=== PATIENT | female | born 1955 | race Caucasian/White ===

== ENCOUNTER 2020-12-26 19:34 | Inpatient (IN) | payer BC ==
[2020-12-26] MEDS ORDERED: HEPARIN SODIUM 1,000 UN/ML (10ML VL) IV PRN (20:20)
--- NOTE | 2020-12-26 20:25 | ED ---
SOB HPI - General Chief Complaint: Shortness of Breath Stated Complaint: SOB, Covid+ Time Seen by Provider: 12/26/20 19:34 Source: patient, EMS, RN notes reviewed, old records reviewed Mode of arrival: EMS Limitations: no limitations - History of Present Illness Initial Comments: This is a 65-year-old female who was exposed to a granddaughter did had COVID-19 this past weekend with symptoms of fever chills cough she was diagnosed with COVID-19 5 days ago. She was seen at [facility] and worked up and found to have a left lower lobe infiltrate on x-ray but due to elevated d-dimer CAT scan was performed did show evidence of bilateral pulmonary emboli with no heart strain. Due to the patient's symptoms she was transferred here for higher level of care. She denies any chest pain currently denies any palpitations patient is a nonsmoker. She was treated with steroids and the other facility. He was also heparinized. MD Complaint: shortness of breath - Related Data Allergies Allergy/AdvReac Type Severity Reaction Status Date / Time No Known Allergies Allergy Verified 12/26/20 19:52 Review of Systems ROS Statement: Those systems with pertinent positive or pertinent negative responses have been documented in the HPI. ROS Other: All systems not noted in ROS Statement are negative. Past Medical History Additional Past Medical History / Comment(s): COVID History of Any Multi-Drug Resistant Organisms: None Reported Past Surgical History: No Surgical Hx Reported Past Psychological History: No Psychological Hx Reported Smoking Status: Never smoker Past Alcohol Use History: None Reported Past Drug Use History: None Reported General Exam - General Exam Comments Initial Comments: This a well-developed well-nourished awake alert oriented 3 female Limitations: no limitations General appearance: alert, in no apparent distress Head exam: Present: atraumatic, normocephalic, normal inspection Eye exam: Present: normal appearance, PERRL, EOMI. Absent: scleral icterus, conjunctival injection, periorbital swelling ENT exam: Present: normal exam, mucous membranes moist Neck exam: Present: normal inspection. Absent: tenderness, meningismus, lymphadenopathy Respiratory exam: Present: decreased breath sounds. Absent: respiratory distress, wheezes, rales, rhonchi, stridor Cardiovascular Exam: Present: regular rate, normal rhythm, normal heart sounds. Absent: systolic murmur, diastolic murmur, rubs, gallop, clicks GI/Abdominal exam: Present: soft, normal bowel sounds. Absent: distended, tenderness, guarding, rebound, rigid Extremities exam: Present: normal inspection, full ROM, normal capillary refill. Absent: tenderness, pedal edema, joint swelling, calf tenderness Back exam: Present: normal inspection Neurological exam: Present: alert, oriented X3, CN II-XII intact Psychiatric exam: Present: normal affect, normal mood Skin exam: Present: warm, dry, intact, normal color. Absent: rash Course Vital Signs 12/26/20 12/26/20 19:49 20:07 Temperature 98.3 F Pulse Rate 79 Respiratory 18 27 H Rate Blood Pressure 125/76 O2 Sat by Pulse 97 Oximetry Medical Decision Making - Medical Decision Making I did review the materials presented from [facility]. Patient will be admitted I did discuss the case with the patient as well as with Dr. Eldridge who did come see the patient in the emergency department - EKG Data -: EKG Interpreted by Me EKG shows normal: sinus rhythm EKG Comments: Sinus rhythm a 74. Interval 178 QRS duration 90 daily since QTC 380/421 this is a normal-appearing EKG Disposition Clinical Impression: Pulmonary embolism, Pneumonia due to COVID-19 virus, Bronchospasm, acute Disposition: ADMITTED IP TO THIS HOSP Condition: Fair Referrals: None,Stated [Primary Care Provider] - 1-2 days
[2020-12-26] MEDS: HEPARIN SOD,PORK IN 0.45% NACL 25,000 UNIT in 0.45% NACL 1 250ML.BAG IV SCH (20:45)
[2020-12-26] MEDS ORDERED: NALOXONE 0.4 MG/ML 1 ML VIAL IV PRN (20:52)
[2020-12-26 22:04] LABS: Partial Thromboplastin Time 92.5 sec (22.0-30.0); Prothrombin Time 10.7 sec (9.0-12.0)
[2020-12-26] MEDS: SODIUM CHLORIDE 0.9% 1,000 ML IV SCH (23:47)
[2020-12-27] MEDS ORDERED: ALBUTEROL HFA INHALER INHALATION SCH
[2020-12-27] MEDS ORDERED: ACETAMINOPHEN TAB 325 MG TAB PO PRN (00:17)
--- NOTE | 2020-12-27 00:18 | P.HPIM ---
History of Present Illness H&P Date: 12/26/20 The patient is a 65-year-old female with no known PMH who was sent in as a transfer from [facility] where she presented earlier today with complaints of shortness of breath. Patient reports that her granddaughter was diagnosed with COVID roughly 10 days ago to whom the patient was exposed. She notes that her own symptoms started a week ago Monday initially with a cough, body aches, and fever. She had herself tested for COVID this past Monday and was positive. She reports continuing to quarantine at home and reports that multiple other family members are also ill. She reports gradually worsening shortness of breath during this time with significantly diminished exercise tolerance. She also reports loss of smell and taste and occasional diarrhea. She denied chest discomfort. Also denied abdominal pain, nausea, vomiting. Denied visual disturbances, weakness, numbness, tingling. Denied any history of blood clots. She underwent an extensive evaluation at [facility] which was all reviewed. The patient was noted to be hypoxic with SpO2 86% on room air. She was found to have an elevated d-dimer after which a CT chest angiogram was performed and revealed bilateral proximal pulmonary emboli along with findings consistent with COVID pneumonia. No RV strain was noted on the CTA. Laboratory evaluation revealed positive COVID-19 PCR, WBC count 5.1, hemoglobin 15.6, platelets 136, PT 9.5, INR 0.9, d-dimer 1.02, sodium 135, potassium 4.0, chloride 100, CO2 28, BUN 18, creatinine 0.6, glucose 122, AST 44, ALT 29, alk phos 75, and troponin less than 0.05. EKG had revealed sinus rhythm at 92 bpm with T-wave inversions in leads III and aVF. The patient was given a breathing treatment as well as oral dexamethasone and was sent to our emergency room for further management. The patient continues to be on 4 L nasal cannula with SpO2 96% and not in any respiratory distress at time of evaluation. Review of systems: Pertinent positives and negatives as discussed in HPI, a complete review of systems was performed and all other systems are negative. Physical examination: General: non toxic, no distress, appears at stated age, normal weight Derm: no unusual rashes/lesions no unusual ecchymoses, warm, dry Head: atraumatic, normocephalic, symmetric Eyes: EOMI, no lid lag, anicteric sclera, pupils equal round reactive to light ENT: Nose and ears atraumatic, no thrush, no pharyngeal erythema Neck: No thyromegaly, no cervical lymphadenopathy, trachea midline, supple Mouth: no lip lesion, mucus membranes moist Cardiovascular: S1S2 reg, no murmur, positive posterior tibial pulse bilateral, no edema, capillary refill less than 2 seconds Lungs: Some scattered bilateral rhonchi, no rales , no accessory muscle use, no wheezing Abdominal: soft, nontender to palpation, no guarding, no appreciable organomegaly, normal bowel sounds Ext: no gross muscle atrophy, muscle strength 5 out of 5 in all 4 extremities grossly, no contractures, Neuro: CN II-XI grossly intact, light touch intact all 4 extremities, finger to nose within normal limits, Psych: Alert, oriented, appropriate affect Assessment/plan Acute provoked bilateral PE in setting of COVID-19 pneumonitis -Continue with heparin infusion -Continue with Decadron -Zinc, vitamin C, vitamin D, melatonin -Supplemental oxygen -Pulmonary consulted -Monitor inflammatory markers Acute hypoxic respiratory failure in setting of COVID-19 pneumonitis -Above management Prerenal azotemia -Likely due to poor oral intake and dehydration with diarrhea -Continue gentle hydration DVT prophylaxis -Heparin infusion The patient is admitted with an anticipated greater than 2 midnight stay for evaluation of COVID, robi PEs CODE STATUS: Full Code Discussed with: Patient Anticipated discharge date: 2-[address]: Home Past Medical History Additional Past Medical History / Comment(s): COVID History of Any Multi-Drug Resistant Organisms: None Reported Past Surgical History: No Surgical Hx Reported Past Psychological History: No Psychological Hx Reported Smoking Status: Never smoker Past Alcohol Use History: None Reported Past Drug Use History: None Reported - Past Family History Mother Family Medical History: No Reported History, Hypertension Medications and Allergies Home Medications Medication Instructions Recorded Confirmed Type Aspirin (Unknown Dose) 1 tab PO DAILY 12/26/20 12/26/20 History Cholecalciferol [Vitamin D3 (25 50 mcg PO DAILY 12/26/20 12/26/20 History Mcg = 1000 Iu)] Allergies Allergy/AdvReac Type Severity Reaction Status Date / Time No Known Allergies Allergy Verified 12/26/20 21:25 Physical Exam Vitals: Vital Signs Temp Pulse Resp BP Pulse Ox 12/26/20 20:50 68 18 112/75 98 12/26/20 20:07 27 H 12/26/20 19:49 98.3 F 79 18 125/76 97 Intake and Output 12/26/20 12/26/20 12/26/20 06:59 14:59 22:59 Other: Weight 75.296 kg
[2020-12-27] MEDS: ALBUTEROL HFA INHALER INHALATION SCH ×3 (07:36→20:30)
[2020-12-27 08:13] LABS: HCT 46.4 % (34.0-46.0); MCH 30.4 pg (25.0-35.0); MCHC 32.2 g/dL (31.0-37.0); MCV 94.2 fL (80.0-100.0); Mean Platelet Volume 7.8; Platelet Count 130 k/uL (150-450); RBC 4.93 m/uL (3.80-5.40); WBC 5.1 k/uL (3.8-10.6)
[2020-12-27 08:50] LABS: ALT 37 U/L (4-34); AST 51 U/L (14-36); African American GFR (CKD) >90 (>60 ml/min/1.73 sqM); Alkaline Phosphatase 70 U/L (38-126); Blood Urea Nitrogen 16 mg/dL (7-17); Calcium 10.1 mg/dL (8.4-10.2); Carbon Dioxide 24 mmol/L (22-30); Glucose 117 mg/dL (74-99); Non-African American GFR(CKD) >90 (>60 ml/min/1.73 sqM); Potassium 3.7 mmol/L (3.5-5.1); Sodium 138 mmol/L (137-145); Total Bilirubin 0.3 mg/dL (0.2-1.3); Total Protein 5.5 g/dL (6.3-8.2)
[2020-12-27] MEDS: ASCORBIC ACID 500 MG TAB PO SCH (08:54)
[2020-12-27] MEDS: SODIUM CHLORIDE 0.9% 1,000 ML IV SCH ×2 (08:55→23:40)
[2020-12-27] MEDS: dexAMETHasone 2 MG TAB PO SCH (08:55)
[2020-12-27] MEDS: ZINC SULFATE 220 MG CAP PO SCH (08:55)
[2020-12-27] MEDS: CHOLECALCIFEROL 25 MCG (1000 IU) TABLET PO SCH (08:55)
[2020-12-27 09:01] LABS: Anion Gap 6 mmol/L; Chloride 108 mmol/L (98-107)
--- NOTE | 2020-12-27 10:05 | P.CNPUL ---
History of Present Illness Consult date: 12/27/20 Reason for consult: dyspnea, pneumonia, pulmonary embolism History of present illness: 65-year-old female patient, transferred from [facility] because of shortness of breath, cough with a related pneumonia and pulmonary embolism. The patient was exposed to COVID-19 in approximately a week ago she started developing cough and body aches and fever. Coagulation became progressively worse and she presented with increased shortness of breath and she was found to be hypoxic at 86% on room air oxygen. She had an elevated d-dimer. CT angiogram showed bilateral pulmonary embolism consistent with COVID-19 related pneumonia. No RV strain pattern based on the CT angiogram. The patient was positive for COVID-19 by PCR. Her d-dimer was at 1.02. Platelet count was 136. Normal renal function. The patient was started on IV heparin. The patient was started on Decadron and the patient was transferred to [facility] for further care. CT angiogram showed bilateral groundglass densities consistent with COVID-19 related pneumonia. The patient had parenchymal densities in the posterior aspect of the lower lobes consistent with pneumonia. There are also scattered bilateral groundglass pulmonary abnormalities. Mediastinum was free of any disease. Pulmonary artery showed filling defects in the liver small but multiple small filling defects in the proximal pulmonary artery bilaterally, highly suspicious for pulmonary embolism. Currently she is on IV heparin. She is on 4 L of oxygen by nasal cannula and her pulse ox is around 96%. This morning, the patient has a white cell count of 5.1. Platelet count is at 1:30. PTT is a 59 which is therapeutic. LDH and CRP has not been done. She is on Decadron 6 mg by mouth daily. Multivitamins regarding COVID-19 infection has been also ordered. Review of Systems Constitutional: Reports fatigue, Reports fever, Reports weakness Eyes: denies as per HPI, denies blurred vision, denies bulging eye, denies decreased vision, denies diplopia, denies discharge, denies dry eye, denies irritation, denies itching, denies pain, denies photophobia, denies loss of peripheral vision, denies loss of vision, denies tunnel vision/blind spots Ears: deny: decreased hearing, ear discharge, earache, tinnitus Ears, nose, mouth and throat: Reports as per HPI Breasts: absent: as per HPI, change in shape, gynecomastia, masses, nipple discharge, pain, skin changes, swelling Cardiovascular: Reports decreased exercise tolerance, Reports dyspnea on exertion Respiratory: Reports cough, Reports dyspnea Genitourinary: Reports as per HPI Menstruation: Reports as per HPI Musculoskeletal: Reports as per HPI Musculoskeletal: absent: ankle pain, ankle stiffness, ankle swelling, as per HPI, elbow pain, elbow stiffness, elbow swelling, foot pain, foot stiffness, foot swelling, hand pain, hand stiffness, hand swelling, hip pain, hip stiffness, hip swelling, knee pain, knee stiffness, knee swelling, shoulder pain, shoulder stiffness, shoulder swelling, wrist pain, wrist stiffness, wrist swelling Integumentary: Reports as per HPI Neurological: Reports as per HPI Psychiatric: Reports as per HPI Endocrine: Reports as per HPI Hematologic/Lymphatic: Reports as per HPI Allergic/Immunologic: Reports as per HPI Past Medical History Additional Past Medical History / Comment(s): COVID History of Any Multi-Drug Resistant Organisms: None Reported Past Surgical History: No Surgical Hx Reported Additional Past Anesthesia/Blood Transfusion Reaction / Comment(s): Never had a blood transfusion. Past Psychological History: No Psychological Hx Reported Smoking Status: Never smoker Past Alcohol Use History: None Reported Past Drug Use History: None Reported - Past Family History Mother Family Medical History: No Reported History, Hypertension Medications and Allergies Home Medications Medication Instructions Recorded Confirmed Type Aspirin (Unknown Dose) 1 tab PO DAILY 12/26/20 12/26/20 History Cholecalciferol [Vitamin D3 (25 50 mcg PO DAILY 12/26/20 12/26/20 History Mcg = 1000 Iu)] Allergies Allergy/AdvReac Type Severity Reaction Status Date / Time No Known Allergies Allergy Verified 12/26/20 21:25 Physical Exam Vitals: Vital Signs Temp Pulse Pulse Resp BP BP Pulse Ox 12/27/20 03:01 98.0 F 75 22 105/68 90 L 12/27/20 00:00 74 20 107/66 90 L 12/26/20 22:22 98.5 F 72 22 120/77 96 12/26/20 21:43 66 18 112/73 97 12/26/20 20:50 68 18 112/75 98 12/26/20 20:07 27 H 12/26/20 19:49 98.3 F 79 18 125/76 97 Intake and Output 0812/27/20 12/27/20 22:59 06:59 14:59 Intake Total 29.139 29.9 Output Total 300 Balance 29.139 -270.1 Intake: Intake, IV Titration 29.139 29.9 Amount Heparin Sod,Pork in 0.45% 29.139 29.9 NaCl 25,000 unit In 0.45 % NaCl 1 250ml.bag @ 18 UNITS/KG/HR 13.553 mls/hr IV .[id number] [facility] Rx#: [id number] Output: Urine 300 Other: # Voids 0 1 # Bowel Movements 1 Weight 75.296 kg 69 kg General: non toxic, no distress, appears at stated age, normal weight, breathing is nonlabored as long as the patient is at rest. With activity, the patient gets somewhat short of breath. Derm: no unusual rashes/lesions no unusual ecchymoses, warm, dry Head exam was generally normal. There was no scleral icterus or corneal arcus. Mucous membranes were moist. Eyes: EOMI, no lid lag, anicteric sclera, pupils equal round reactive to light ENT: Nose and ears atraumatic, no thrush, no pharyngeal erythema Neck: No thyromegaly, no cervical lymphadenopathy, trachea midline, supple Mouth: no lip lesion, mucus membranes moist Cardiovascular: S1S2 reg, no murmur, positive posterior tibial pulse bilateral, no edema, capillary refill less than 2 seconds Lungs: Some scattered bilateral rhonchi, no rales , no accessory muscle use, no wheezing Abdominal: soft, nontender to palpation, no guarding, no appreciable org anomegaly, normal bowel sounds Ext: no gross muscle atrophy, muscle strength 5 out of 5 in all 4 extremities grossly, no contractures, Neuro: CN II-XI grossly intact, light touch intact all 4 extremities, finger to nose within normal limits, Psych: Alert, oriented, appropriate affect Results - Laboratory Findings CBC and BMP: 12/27/20 07:47 12/27/20 07:47 PT/INR, D-dimer PT 10.7 sec (9.0-12.0) 12/26/20 21:29 INR 1.0 (<1.2) 12/26/20 21:29 Abnormal lab findings: Abnormal Labs 12/26/20 12/27/20 12/27/20 21:29 01:38 07:47 Hct 46.4 H Plt Count 130 L APTT 92.5 H 95.6 H Chloride Glucose AST ALT Total Protein Albumin 12/27/20 12/27/20 07:47 07:47 Hct Plt Count APTT 59.6 H Chloride 108 H Glucose 117 H AST 51 H ALT 37 H Total Protein 5.5 L Albumin 3.0 L - Diagnostic Findings Chest x-ray: image reviewed CT scan - chest: image reviewed Assessment and Plan Plan: 1 acute COVID-19 related pneumonia with bilateral groundglass primary changes co nsistent with pneumonia. The patient is within the window for Remdesivir, currently on 4 L about 2 by nasal cannula. Currently on Decadron. LDH and CRP needs to be checked. The patient has not vaccinated. The patient has not received monoclonal antibodies. 2 acute bilateral pulmonary embolism based on the CT angiogram contributing to her shortness of breath. This could be related to her COVID-19 infection hypercoagulability related to COVID-19 and the patient is currently on IV heparin. D-dimer is mildly elevated 3 acute hypoxic respiratory failure currently on 4 L of oxygen by nasal cannula, secondary to above 4 mild thrombocytopenia Plan Proceed with a 2-D echocardiogram to assess pulmonary hypertension and RV dysfunction Obtain Doppler of the lower extremity, rule out DVT Continue IV heparin Continue Decadron 6mg po daily Start the patient on Remdesivir perprotocol Check LDH and CRP Agree on vitamin C and vitamin D and melatonin Continue monitoring the oxygenation Monitor platelet count We'll continue to follow.
[2020-12-27] MEDS ORDERED: REMDESIVIR 200 MG in SODIUM CHLORIDE 0.9% 250 ML IVPB ONE (10:06)
[2020-12-27 10:56] LABS: C Reactive Protein 3.5 mg/dL (<1.0)
--- NOTE | 2020-12-27 11:48 | US ---
EXAMINATION TYPE: US venous doppler duplex LE DATE OF EXAM: 12/27/2020 11:15 AM COMPARISON: NONE CLINICAL HISTORY: PE, COVID. Exam done portable. SIDE PERFORMED: Bilateral TECHNIQUE: The lower extremity deep venous system is examined utilizing real time linear array sonog jonathan with graded compression, doppler sonography and color-flow sonography. VESSELS IMAGED: Common Femoral Vein Deep Femoral Vein Greater Saphenous Vein * Femoral Vein Popliteal Vein Small Saphenous Vein * Proximal Calf Veins (* superficial vessels) There is normal flow, compressibility, vascular waveforms. Right Leg: Appears negative for DVT Left Leg: Appears negative for DVT IMPRESSION: No evident deep venous arthrosis at the level of the knees or central to the knees within the lower extremities
--- NOTE | 2020-12-27 12:32 | P.PN ---
Subjective Progress Note Date: 12/27/20 No new copmlaints today. Pt is on dexamethasone, heparin, Vit C/D, zn, famotidine. Supportive therapy. Objective - Vital Signs Vital signs: Vital Signs Temp 98.2 F 12/27/20 12:00 Pulse 71 12/27/20 12:00 Resp 20 12/27/20 12:00 BP 117/70 12/27/20 12:00 Pulse Ox 92 L 12/27/20 12:00 Intake & Output 12/26/20 12/27/20 12/27/20 18:59 06:59 18:59 Intake Total 59.039 Output Total 300 Balance -240.961 Weight 69 kg Intake: Intake, IV Titration 59.039 Amount Heparin Sod,Pork in 0.45% 59.039 NaCl 25,000 unit In 0.45 % NaCl 1 250ml.bag @ 18 UNITS/KG/HR 13.553 mls/hr IV .[id number] [facility] Rx#: [id number] Output: Urine 300 Other: # Voids 1 # Bowel Movements 1 - Exam Gen: awake, alert HEENT: normocephalic, atraumatic, good hearing acuity, moist mucous membranes Resp: good air exchange, breathing comfortably with no accessory muscle use CVS: good distal perfusion x 4, GI: soft, NTTP, ND : no SPT, no CVAT, swann catheter not present MSK: no pitting edema, no clubbing Neuro: non-focal, moving all extremities Psych: cooperative, euthymic mood - Labs CBC & Chem 7: 12/27/20 07:47 12/27/20 07:47 Labs: Abnormal Lab Results - Last 24 Hours (Table) 12/26/20 12/27/20 12/27/20 Range/Units 21:29 01:38 07:47 Hct 46.4 H (34.0-46.0) % Plt Count 130 L (150-450) k/uL APTT 92.5 H 95.6 H (22.0-30.0) sec Chloride (98-107) mmol/L Glucose (74-99) mg/dL AST (14-36) U/L ALT (4-34) U/L Lactate Dehydrogenase (313-618) U/L C-Reactive Protein (<1.0) mg/dL Total Protein (6.3-8.2) g/dL Albumin (3.5-5.0) g/dL 12/27/20 12/27/20 12/27/20 Range/Units 07:47 07:47 07:47 Hct (34.0-46.0) % Plt Count (150-450) k/uL APTT 59.6 H (22.0-30.0) sec Chloride 108 H (98-107) mmol/L Glucose 117 H (74-99) mg/dL AST 51 H (14-36) U/L ALT 37 H (4-34) U/L Lactate Dehydrogenase 684 H (313-618) U/L C-Reactive Protein 3.5 H (<1.0) mg/dL Total Protein 5.5 L (6.3-8.2) g/dL Albumin 3.0 L (3.5-5.0) g/dL Assessment and Plan Assessment: Acute provoked bilateral PE in setting of COVID-19 pneumonitis -Continue with heparin infusion -Continue with Decadron -Zinc, vitamin C, vitamin D, melatonin -Supplemental oxygen -Pulmonary consulted -Monitor inflammatory markers Acute hypoxic respiratory failure in setting of COVID-19 pneumonitis -Above management Prerenal azotemia -Likely due to poor oral intake and dehydration with diarrhea -Continue gentle hydration DVT prophylaxis -Heparin infusion The patient is admitted with an anticipated greater than 2 midnight stay for evaluation of COVID, robi PEs CODE STATUS: Full Code Discussed with: Patient Anticipated discharge date: 2-[address]: Home
[2020-12-27] MEDS: HEPARIN SOD,PORK IN 0.45% NACL 25,000 UNIT in 0.45% NACL 1 250ML.BAG IV SCH (14:13)
[2020-12-27] MEDS: MELATONIN 5 MG TABLET PO SCH (21:09)
[2020-12-28] MEDS: ALBUTEROL HFA INHALER INHALATION SCH ×3 (08:03→19:05)
[2020-12-28] MEDS: dexAMETHasone 2 MG TAB PO SCH (08:17)
[2020-12-28] MEDS: ZINC SULFATE 220 MG CAP PO SCH (08:17)
[2020-12-28] MEDS: SODIUM CHLORIDE 0.9% 1,000 ML IV SCH (08:17)
[2020-12-28] MEDS: CHOLECALCIFEROL 25 MCG (1000 IU) TABLET PO SCH (08:17)
[2020-12-28] MEDS: ASCORBIC ACID 500 MG TAB PO SCH (08:17)
[2020-12-28] MEDS ORDERED: REMDESIVIR 100 MG in SODIUM CHLORIDE 0.9% 250 ML IVPB SCH (09:00)
--- NOTE | 2020-12-28 11:17 | P.PN ---
Subjective Progress Note Date: 12/28/20 Stable oxygenation status. Ongoing supportive care, heparin gtt. Pulmonology following. Objective - Vital Signs Vital signs: Vital Signs Temp 98 F 12/28/20 04:30 Pulse 71 12/28/20 04:30 Resp 21 12/28/20 04:30 BP 111/71 12/28/20 04:30 Pulse Ox 92 L 12/28/20 08:03 Intake & Output 12/27/20 12/28/20 12/28/20 18:59 06:59 18:59 Intake Total 729.418 126.639 240 Balance 729.418 126.639 240 Weight 70.5 kg Intake: Intake, IV Titration 77.418 126.639 Amount Heparin Sod,Pork in 0.45% 77.418 126.639 NaCl 25,000 unit In 0.45 % NaCl 1 250ml.bag @ 18 UNITS/KG/HR 13.553 mls/hr IV .[id number] [facility] Rx#: [id number] Oral 652 240 Other: Voiding Method Bedside Commode # Voids 3 1 1 # Bowel Movements 1 - Exam Gen: awake, alert HEENT: normocephalic, atraumatic, good hearing acuity, moist mucous membranes Resp: good air exchange, breathing comfortably with no accessory muscle use CVS: good distal perfusion x 4, GI: soft, NTTP, ND : no SPT, no CVAT, swann catheter not present MSK: no pitting edema, no clubbing Neuro: non-focal, moving all extremities Psych: cooperative, euthymic mood - Labs CBC & Chem 7: 12/27/20 07:47 12/27/20 07:47 Labs: Abnormal Lab Results - Last 24 Hours (Table) 12/27/20 12/28/20 Range/Units 07:47 06:16 APTT 43.2 H (22.0-30.0) sec Ferritin 704.0 H (10.0-291.0) ng/mL Assessment and Plan Assessment: Acute provoked bilateral PE in setting of COVID-19 pneumonitis -Continue with heparin infusion -Continue with Decadron -Zinc, vitamin C, vitamin D, melatonin -Supplemental oxygen -Pulmonary consulted -Monitor inflammatory markers Acute hypoxic respiratory failure in setting of COVID-19 pneumonitis -Above management Prerenal azotemia -Likely due to poor oral intake and dehydration with diarrhea -Continue gentle hydration DVT prophylaxis -Heparin infusion The patient is admitted with an anticipated greater than 2 midnight stay for evaluation of COVID, robi PEs CODE STATUS: Full Code Discussed with: Patient Anticipated discharge date: 2-[address]: Home
--- NOTE | 2020-12-28 13:11 | P.PN ---
Subjective Progress Note Date: 12/28/20 Principal diagnosis: Acute COVID-19 pneumonia, acute bilateral pulmonary embolism 65-year-old female patient, transferred from [facility] because of shortness of breath, cough with a related pneumonia and pulmonary embolism. The patient was exposed to COVID-19 in approximately a week ago she started developing cough and body aches and fever. Coagulation became progressively worse and she presented with increased shortness of breath and she was found to be hypoxic at 86% on room air oxygen. She had an elevated d-dimer. CT angiogram showed bilateral pulmonary embolism consistent with COVID-19 related pneumonia. No RV strain pattern based on the CT angiogram. The patient was positive for COVID-19 by PCR. Her d-dimer was at 1.02. Platelet count was 136. Normal renal function. The patient was started on IV heparin. The patient was started on Decadron and the patient was transferred to [facility] for further care. CT angiogram showed bilateral groundglass densities consistent with COVID-19 related pneumonia. The patient had parenchymal densities in the posterior aspect of the lower lobes consistent with pneumonia. There are also scattered bilateral groundglass pulmonary abnormalities. Mediastinum was free of any disease. Pulmonary artery showed filling defects in the liver small but multiple small filling defects in the proximal pulmonary artery bilaterally, highly suspicious for pulmonary embolism. Currently she is on IV heparin. She is on 4 L of oxygen by nasal cannula and her pulse ox is around 96%. This morning, the patient has a white cell count of 5.1. Platelet count is at 1:30. PTT is a 59 which is therapeutic. LDH and CRP has not been done. She is on Decadron 6 mg by mouth daily. Multivitamins regarding COVID-19 infection has been also ordered. On 12/28/2020 patient seen in follow-up on selective care unit, she is resting comfortably in bed, she is currently on 2 L of oxygen her pulse ox is 92%, she is breathing comfortably, does not appear to be in any acute distress, she is awake and alert, oriented 3, she is afebrile. No complaints of chest discomfort, no hemoptysis. She is on day 2 of Remdesivir, she is on oral dexamethasone 6 mg daily. She remains on heparin infusion for a diagnosis of acute pulmonary embolism. Lower extremity Dopplers were completed and are negative for DVT. Echocardiogram is pending. Objective - Vital Signs Vital signs: Vital Signs Temp 98.0 F 12/28/20 08:00 Pulse 71 12/28/20 08:00 Resp 20 12/28/20 08:00 BP 111/67 12/28/20 08:00 Pulse Ox 92 L 12/28/20 08:03 Intake & Output 12/27/20 12/28/20 12/28/20 18:59 06:59 18:59 Intake Total 729.418 126.639 240 Balance 729.418 126.639 240 Weight 70.5 kg Intake: Intake, IV Titration 77.418 126.639 Amount Heparin Sod,Pork in 0.45% 77.418 126.639 NaCl 25,000 unit In 0.45 % NaCl 1 250ml.bag @ 18 UNITS/KG/HR 13.553 mls/hr IV .[id number] [facility] Rx#: [id number] Oral 652 240 Other: Voiding Method Bedside Commode Bedside Commode # Voids 3 1 1 # Bowel Movements 1 - Exam GENERAL EXAM: Alert, pleasant, 65-year-old white female, On 2 liters of oxygen the pulse ox 92% comfortable in no apparent distress. HEAD: Normocephalic/atraumatic. EYES: Normal reaction of pupils, equal size. Conjunctiva pink, sclera white. NOSE: Clear with pink turbinates. THROAT: No erythema or exudates. NECK: No masses, no JVD, no thyroid enlargement, no adenopathy. CHEST: No chest wall deformity. Symmetrical expansion. LUNGS: Equal air entry with no crackles, wheeze, rhonchi or dullness. CVS: Regular rate and rhythm, normal S1 and S2, no gallops, no murmurs, no rubs ABDOMEN: Soft, nontender. No hepatosplenomegaly, normal bowel sounds, no guarding or rigidity. EXTREMITIES: No clubbing, no edema, no cyanosis, 2+ pulses and upper and lower extremities. MUSCULOSKELETAL: Muscle strength and tone normal. SPINE: No scoliosis or deformity SKIN: No rashes CENTRAL NERVOUS SYSTEM: Alert and oriented -3. No focal deficits, tone is normal in all 4 extremities. PSYCHIATRIC: Alert and oriented -3. Appropriate affect. Intact judgment and insight. - Labs CBC & Chem 7: 12/27/20 07:47 12/27/20 07:47 Labs: Abnormal Lab Results - Last 24 Hours (Table) 12/27/20 12/28/20 Range/Units 07:47 06:16 APTT 43.2 H (22.0-30.0) sec Ferritin 704.0 H (10.0-291.0) ng/mL Assessment and Plan Plan: Assessment: #1. Acute COVID-19 related pneumonia, with bilateral groundglass changes consistent with COVID-19 pneumonia. Patient is within the window for Remdesivir, and was started on Remdesivir on 12/27/2020. She is also on Decadron. Patient was not vaccinated for COVID 19. Has not received monoclonal antibodies #2. Acute bilateral pulmonary embolism based on the CT angiogram contributing to the shortness of breath. This could be related to COVID-19 infectious hypercoagulability. Lower extremity Dopplers were negative for DVT, remains on heparin infusion #3. Acute hypoxic respiratory failure related to the above, currently on 2 L of oxygen above 92% #4. Mild thrombocytopenia Plan: Continue Decadron Today's day 2 to of Remdesivir Continue vitamins Continue heparin infusion Lower extremity Dopplers were reviewed Today's labs were noted Inflammatory markers are not significantly elevated Patient is currently on 2 L of oxygen No fever or chills We'll continue to follow Monitor for any worsening dyspnea or hypoxia I performed a history & physical examination of the patient and discussed their management with my nurse practitioner, Haleigh Knott. I reviewed the nurse practitioner's note and agree with the documented findings and plan of care. Lung sounds are positive for clear breath sounds throughout the lung fuentes. The findings and the impression was discussed with the patient. I attest to the documentation by the nurse practitioner. Time with Patient: Less than 30
[2020-12-28] MEDS: HEPARIN SOD,PORK IN 0.45% NACL 25,000 UNIT in 0.45% NACL 1 250ML.BAG IV SCH (15:54)
[2020-12-28] MEDS: MELATONIN 5 MG TABLET PO SCH (20:56)
--- NOTE | 2020-12-28 21:39 | ECHOF ---
Referral Reason:Srinivas PE MEASUREMENTS -------- HEIGHT: 170.2 cm WEIGHT: 70.3 kg BP: IVSd: 1.3 cm (0.6 - 1.1) LVIDd: 4.5 cm (3.9 - 5.3) LVPWd: 1.4 cm (0.6 - 1.1) EDV(Teich): 91 ml IVSs: 1.5 cm LVIDs: 2.8 cm LVPWs: 1.2 cm %IVS Thck: 11 % ESV(Teich): 28 ml EF(Teich): 69 % %FS: 38 % SV(Teich): 62 ml RVIDd: 3.7 cm (< 3.3) Ao Diam: 3.4 cm (2.0 - 3.7) LA Diam: 3.1 cm (2.7 - 3.8) AV Cusp: 2.3 cm (1.5 - 2.6) EPSS: 1.0 cm MV E Umang: 0.45 m/s MV DecT: 179 ms MV Dec [place]: 2.5 m/s MV A Umang: 0.51 m/s MV E/A Ratio: 0.88 MV PHT: 52 ms MR Vmax: 0.90 m/s MR maxP.21 mmHg AV Vmax: 0.84 m/s AV maxP.79 mmHg TR Vmax: 2.02 m/s TR maxP.29 mmHg RAP: 5.00 mmHg RVSP: 21.29 mmHg MV EF SLOPE: 147.86 mm/s (70 - 150) MV EXCURSION: 21.17 mm (> 18.000) FINDINGS -------- This was a technically difficult study with suboptimal views. The left ventricular size is normal. There is moderate concentric left ventricular hypertrophy. O verall left ventricular systolic function is low-normal with, an EF between 50 - 55 %. The right ventricle is mildly enlarged. The left atrial size is normal. The right atrial size is normal. Lumason used The aortic valve is trileaflet and appears structurally normal. The mitral valve is normal. There is trace mitral regurgitation. The tricuspid valve appears structurally normal. Trace tricuspid regurgitation present. Right frankie tricular systolic pressure is normal at < 35 mmHg. There is no pulmonic regurgitation present. The aortic root size is normal. IVC Not well visulized. There is no pericardial effusion. CONCLUSIONS -------- 1. The left ventricular size is normal. 2. There is moderate concentric left ventricular hypertrophy. 3. Overall left ventricular systolic function is low-normal with, an EF between 50 - 55 %. 4. The right ventricle is mildly enlarged. 5. There is trace mitral regurgitation. 6. Trace tricuspid regurgitation present. 7. There is no pericardial effusion. DUST HANDLER: Celeste Arguello RDCS
[2020-12-29] MEDS: SODIUM CHLORIDE 0.9% 1,000 ML IV SCH ×2 (02:20→14:34)
[2020-12-29] MEDS: HEPARIN SOD,PORK IN 0.45% NACL 25,000 UNIT in 0.45% NACL 1 250ML.BAG IV SCH (06:34)
[2020-12-29] MEDS: ALBUTEROL HFA INHALER INHALATION SCH ×3 (07:58→19:54)
[2020-12-29 08:44] LABS: ALT 29 U/L (4-34); AST 32 U/L (14-36); African American GFR (CKD) >90 (>60 ml/min/1.73 sqM); Albumin 2.8 g/dL (3.5-5.0); Alkaline Phosphatase 65 U/L (38-126); Anion Gap 6 mmol/L; Blood Urea Nitrogen 13 mg/dL (7-17); Calcium 9.7 mg/dL (8.4-10.2); Carbon Dioxide 25 mmol/L (22-30); Chloride 108 mmol/L (98-107); Glucose 95 mg/dL (74-99); LDH 561 U/L (313-618); Non-African American GFR(CKD) >90 (>60 ml/min/1.73 sqM); Potassium 3.4 mmol/L (3.5-5.1); Sodium 139 mmol/L (137-145); Total Bilirubin 0.3 mg/dL (0.2-1.3); Total Protein 5.3 g/dL (6.3-8.2)
[2020-12-29 08:50] LABS: HCT 41.5 % (34.0-46.0); HGB 14.2 gm/dL (11.4-16.0); MCH 31.3 pg (25.0-35.0); MCHC 34.2 g/dL (31.0-37.0); MCV 91.6 fL (80.0-100.0); Mean Platelet Volume 8.1; Platelet Count 203 k/uL (150-450); RBC 4.54 m/uL (3.80-5.40); RDW 12.9 % (11.5-15.5)
[2020-12-29 09:11] LABS: C Reactive Protein 1.6 mg/dL (<1.0)
[2020-12-29] MEDS: dexAMETHasone 2 MG TAB PO SCH (09:46)
[2020-12-29] MEDS: CHOLECALCIFEROL 25 MCG (1000 IU) TABLET PO SCH (09:47)
[2020-12-29] MEDS: ZINC SULFATE 220 MG CAP PO SCH (09:47)
[2020-12-29] MEDS: ASCORBIC ACID 500 MG TAB PO SCH (09:47)
--- NOTE | 2020-12-29 12:39 | P.PN ---
Subjective Progress Note Date: 12/29/20 Principal diagnosis: Acute COVID-19 pneumonia, acute bilateral pulmonary embolism 65-year-old female patient, transferred from [facility] because of shortness of breath, cough with a related pneumonia and pulmonary embolism. The patient was exposed to COVID-19 in approximately a week ago she started developing cough and body aches and fever. Coagulation became progressively worse and she presented with increased shortness of breath and she was found to be hypoxic at 86% on room air oxygen. She had an elevated d-dimer. CT angiogram showed bilateral pulmonary embolism consistent with COVID-19 related pneumonia. No RV strain pattern based on the CT angiogram. The patient was positive for COVID-19 by PCR. Her d-dimer was at 1.02. Platelet count was 136. Normal renal function. The patient was started on IV heparin. The patient was started on Decadron and the patient was transferred to [facility] for further care. CT angiogram showed bilateral groundglass densities consistent with COVID-19 related pneumonia. The patient had parenchymal densities in the posterior aspect of the lower lobes consistent with pneumonia. There are also scattered bilateral groundglass pulmonary abnormalities. Mediastinum was free of any disease. Pulmonary artery showed filling defects in the liver small but multiple small filling defects in the proximal pulmonary artery bilaterally, highly suspicious for pulmonary embolism. Currently she is on IV heparin. She is on 4 L of oxygen by nasal cannula and her pulse ox is around 96%. This morning, the patient has a white cell count of 5.1. Platelet count is at 1:30. PTT is a 59 which is therapeutic. LDH and CRP has not been done. She is on Decadron 6 mg by mouth daily. Multivitamins regarding COVID-19 infection has been also ordered. On 12/28/2020 patient seen in follow-up on selective care unit, she is resting comfortably in bed, she is currently on 2 L of oxygen her pulse ox is 92%, she is breathing comfortably, does not appear to be in any acute distress, she is awake and alert, oriented 3, she is afebrile. No complaints of chest discomfort, no hemoptysis. She is on day 2 of Remdesivir, she is on oral dexamethasone 6 mg daily. She remains on heparin infusion for a diagnosis of acute pulmonary embolism. Lower extremity Dopplers were completed and are negative for DVT. Echocardiogram is pending. On 12/29/2000 patient seen in follow-up on selective care unit, she 5 L of oxygen pulse ox is 94-96%, no fevers overnight, blood pressure stable,no new chest x-ray, patient has been admitted with COVID-19 pneumonia, and she is on day 3 of Remdesivir. She remains on oral Decadron 6 mg daily. Patient was also diagnosed with acute pulmonary embolism, lower extremity Dopplers were negative for DVT, echocardiogram showed moderate concentric LVH, and a low normal EF of 50-55%, right ventricle was mildly enlarged, and there was trace mitral regurgitation, right ventricular systolic pressure was less than 35 mmHg. she remains on heparin infusion. No acute events overnight. Objective - Vital Signs Vital signs: Vital Signs Temp 98.1 F 12/29/20 11:51 Pulse 72 12/29/20 11:51 Resp 20 12/29/20 11:51 BP 125/76 12/29/20 11:51 Pulse Ox 96 12/29/20 11:51 Intake & Output 12/28/20 12/29/20 12/29/20 18:59 06:59 18:59 Intake Total 1080.767 132.850 245.888 Output Total 1150 400 Balance 1080.767 -1017.150 -154.112 Weight 72 kg Intake: Intake, IV Titration 80.767 132.850 5.888 Amount Heparin Sod,Pork in 0.45% 80.767 132.850 5.888 NaCl 25,000 unit In 0.45 % NaCl 1 250ml.bag @ 18 UNITS/KG/HR 13.553 mls/hr IV .[id number] [facility] Rx#: [id number] Oral 1000 240 Output: Urine 1150 400 Other: Voiding Method Bedside Commode Bedside Commode Bedside Commode # Voids 1 1 # Bowel Movements 1 1 - Exam GENERAL EXAM: Alert, pleasant, 65-year-old white female, On 5 liters of oxygen the pulse ox 96% comfortable in no apparent distress. HEAD: Normocephalic/atraumatic. EYES: Normal reaction of pupils, equal size. Conjunctiva pink, sclera white. NOSE: Clear with pink turbinates. THROAT: No erythema or exudates. NECK: No masses, no JVD, no thyroid enlargement, no adenopathy. CHEST: No chest wall deformity. Symmetrical expansion. LUNGS: Equal air entry with no crackles, wheeze, rhonchi or dullness. CVS: Regular rate and rhythm, normal S1 and S2, no gallops, no murmurs, no rubs ABDOMEN: Soft, nontender. No hepatosplenomegaly, normal bowel sounds, no guardi ng or rigidity. EXTREMITIES: No clubbing, no edema, no cyanosis, 2+ pulses and upper and lower extremities. MUSCULOSKELETAL: Muscle strength and tone normal. SPINE: No scoliosis or deformity SKIN: No rashes CENTRAL NERVOUS SYSTEM: Alert and oriented -3. No focal deficits, tone is normal in all 4 extremities. PSYCHIATRIC: Alert and oriented -3. Appropriate affect. Intact judgment and insight. - Labs CBC & Chem 7: 12/29/20 06:29 12/29/20 06:29 Labs: Abnormal Lab Results - Last 24 Hours (Table) 12/28/20 12/28/20 12/29/20 Range/Units 12:59 19:19 06:29 APTT 50.6 H 49.1 H 49.9 H (22.0-30.0) sec Potassium (3.5-5.1) mmol/L Chloride (98-107) mmol/L C-Reactive Protein (<1.0) mg/dL Total Protein (6.3-8.2) g/dL Albumin (3.5-5.0) g/dL 12/29/20 Range/Units 06:29 APTT (22.0-30.0) sec Potassium 3.4 L (3.5-5.1) mmol/L Chloride 108 H (98-107) mmol/L C-Reactive Protein 1.6 H (<1.0) mg/dL Total Protein 5.3 L (6.3-8.2) g/dL Albumin 2.8 L (3.5-5.0) g/dL Assessment and Plan Plan: Assessment: #1. Acute COVID-19 related pneumonia, with bilateral groundglass changes consistent with COVID-19 pneumonia. Patient is within the window for Remdesivir, and was started on Remdesivir on 12/27/2020. She is also on Decadron. Patient was not vaccinated for COVID 19. Has not received monoclonal antibodies #2. Acute bilateral pulmonary embolism based on the CT angiogram contributing to the shortness of breath. This could be related to COVID-19 infectious hypercoagulability. Lower extremity Dopplers were negative for DVT, remains on heparin infusion. will be transitioned to oral anticoagulation #3. Acute hypoxic respiratory failure related to the above, currently on 5 L of oxygen above 96% #4. Mild thrombocytopenia, improving Plan: Continue Decadron Today's day 3 to of Remdesivir Continue vitamins Lower extremity Dopplers were reviewed we'll start patient on Eliquis starter pack, discontinue heparin infusion Echocardiogram has been noted Today's labs were noted Inflammatory markers are not significantly elevated provide incentive spirometer Encouraged patient to sit up in a chair Follow-up chest x-ray tomorrow Monitor for any worsening dyspnea or hypoxia I performed a history & physical examination of the patient and discussed their management with my nurse practitioner, Haleigh Knott. I reviewed the nurse practitioner's note and agree with the documented findings and plan of care. Lung sounds are positive for clear breath sounds throughout the lung fuentes. The findings and the impression was discussed with the patient. I attest to the documentation by the nurse practitioner. Time with Patient: Less than 30
[2020-12-29] MEDS ORDERED: POTASSIUM CHLORIDE ER 20 MEQ TAB.ER PO STA (13:35)
[2020-12-29] MEDS: APIXABAN 5 MG TAB PO SCH ×2 (14:33→20:36)
--- NOTE | 2020-12-29 18:47 | P.PN ---
Subjective Progress Note Date: 12/29/20 (Delayed charting seen at 1150) Principal diagnosis: shortness of breath Patient is a 65-year-old female with a history of vitamin D deficiency who was initially seen at [facility] secondary to shortness of breath and cough. She had a known COVID-19 exposer one week prior and had developed progressively worsening shortness of breath. On arrival there she was hypoxic at 86% on room air and had an elevated d-dimer. CTA showed bilateral pulmonary embolism and changes consistent with COVID-19 related pneumonia. There was no indication of RV strain on the CT angiogram. COVID-19 PCR was positive. She was subsequently started on IV heparin, and Decadron. She was transferred for further care. Pulmonary was consulted. She was started on ROM severe. She underwent an echocardiogram which showed concentric LVH and a low normal ejection fraction of 50-55% with moderate enlargement of the right ventricle. Her 71 Dopplers were negative for DVT. She had initially been doing well but required going to 5 L nasal cannula on 12/28. Patient seen and examined at bedside. She states her breathing is stable, she has been eating and drinking fairly well. She had diarrhea previously but this is resolved. She denies any chest pain. We discussed that she should lay in the prone position as able. General: Ill appearing, no distress, appears at stated age Derm: warm, dry Head: atraumatic, normocephalic, symmetric Eyes: EOMI, no lid lag, anicteric sclera Mouth: no lip lesion, mucus membranes moist Cardiovascular: S1S2 reg, no murmur, positive posterior tibial pulse bilateral, Lungs: Decreased breath sounds bilateral, no rhonchi, no rales , no accessory muscle use Abdominal: soft, nontender to palpation, no guarding, no appreciable organomeg josh Ext: no gross muscle atrophy, no edema, no contractures Neuro: CN II-XI grossly intact, no focal neuro deficits Psych: Alert, oriented, appropriate affect COVID-19 pneumonia Acute bilateral pulmonary embolism Acute hypoxic respiratory failure -Remdesivir day #3 -Decadron day #4 -Continue vitamin C, vitamin D, zinc, and melatonin. -Continue IV fluids -[facility] -Echocardiogram without signs of RV strain -Lower extremity venous Doppler negative -Follow code with labs and chest x-ray -Pulmonary recommendations appreciated - unvaccinated Prerenal azotemia, resolved. DVT prophylaxis: itzel Discussed with: patient, nursing Anticipated discharge: 3-[address]: home A total of 35 minutes was spent on the care of this complex patient more than 50% of the time was spent in counseling and care coordination. Objective - Vital Signs Vital signs: Vital Signs Temp 97.8 F 12/29/20 15:19 Pulse 75 12/29/20 15:19 Resp 20 12/29/20 15:19 BP 121/73 12/29/20 15:19 Pulse Ox 96 12/29/20 15:19 Intake & Output 12/28/20 12/29/20 12/29/20 18:59 06:59 18:59 Intake Total 1080.767 535.990 7603.888 Output Total 1150 400 Balance 1080.767 -1051.350 7511.888 Weight 72 kg Intake: Intake, IV Titration 80.767 132.850 905.888 Amount Heparin Sod,Pork in 0.45% 80.767 132.850 5.888 NaCl 25,000 unit In 0.45 % NaCl 1 250ml.bag @ 18 UNITS/KG/HR 13.553 mls/hr IV .[id number] [facility] Rx#: [id number] Sodium Chloride 0.9% 1, 900 000 ml @ 75 mls/hr IV . [id number] [facility] Rx#:[id number] Oral 1000 1200 Output: Urine 1150 400 Other: Voiding Method Bedside Commode Bedside Commode Bedside Commode # Voids 1 1 3 # Bowel Movements 1 1 - Labs CBC & Chem 7: 12/29/20 06:29 12/29/20 06:29 Labs: Abnormal Lab Results - Last 24 Hours (Table) 12/28/20 12/29/20 12/29/20 Range/Units 19:19 06:29 06:29 APTT 49.1 H 49.9 H (22.0-30.0) sec Potassium 3.4 L (3.5-5.1) mmol/L Chloride 108 H (98-107) mmol/L C-Reactive Protein 1.6 H (<1.0) mg/dL Total Protein 5.3 L (6.3-8.2) g/dL Albumin 2.8 L (3.5-5.0) g/dL
[2020-12-29] MEDS: MELATONIN 5 MG TABLET PO SCH (20:36)
[2020-12-29 22:41] LABS: Ferritin 420.7 ng/mL (10.0-291.0)
[2020-12-30] MEDS: SODIUM CHLORIDE 0.9% 1,000 ML IV SCH ×2 (02:48→16:09)
[2020-12-30 07:45] LABS: HCT 46.3 % (34.0-46.0); HGB 15.4 gm/dL (11.4-16.0); MCH 31.5 pg (25.0-35.0); MCHC 33.2 g/dL (31.0-37.0); MCV 94.8 fL (80.0-100.0); Mean Platelet Volume 7.5; Platelet Count 227 k/uL (150-450); RBC 4.89 m/uL (3.80-5.40); RDW 12.9 % (11.5-15.5); WBC 5.9 k/uL (3.8-10.6)
[2020-12-30 07:56] LABS: ALT 30 U/L (4-34); AST 33 U/L (14-36); African American GFR (CKD) >90 (>60 ml/min/1.73 sqM); Albumin 2.9 g/dL (3.5-5.0); Alkaline Phosphatase 65 U/L (38-126); Anion Gap 5 mmol/L; Blood Urea Nitrogen 14 mg/dL (7-17); Calcium 9.9 mg/dL (8.4-10.2); Carbon Dioxide 26 mmol/L (22-30); Chloride 107 mmol/L (98-107); Glucose 90 mg/dL (74-99); LDH 569 U/L (313-618); Non-African American GFR(CKD) >90 (>60 ml/min/1.73 sqM); Potassium 3.9 mmol/L (3.5-5.1); Sodium 138 mmol/L (137-145); Total Bilirubin 0.5 mg/dL (0.2-1.3); Total Protein 5.5 g/dL (6.3-8.2)
[2020-12-30] MEDS: dexAMETHasone 2 MG TAB PO SCH (08:32)
[2020-12-30] MEDS: CHOLECALCIFEROL 25 MCG (1000 IU) TABLET PO SCH (08:32)
[2020-12-30] MEDS: ZINC SULFATE 220 MG CAP PO SCH (08:33)
[2020-12-30] MEDS: ASCORBIC ACID 500 MG TAB PO SCH (08:33)
[2020-12-30] MEDS: APIXABAN 5 MG TAB PO SCH ×2 (08:33→21:21)
[2020-12-30] MEDS: ALBUTEROL HFA INHALER INHALATION SCH ×3 (09:45→20:29)
[2020-12-30 11:00] LABS: C Reactive Protein 1.2 mg/dL (<1.0)
[2020-12-30 12:01] LABS: Glucose,Whole Blood 125 mg/dL (75-99)
[2020-12-30 12:08] VITALS: RESP 16
--- NOTE | 2020-12-30 12:44 | P.PN ---
Subjective Progress Note Date: 12/30/20 Principal diagnosis: Acute COVID-19 pneumonia, acute bilateral pulmonary embolism 65-year-old female patient, [facility], cough with a related pneumonia and pulmonary embolism. The patient was exposed to COVID-19 in approximately a week ago she started developing cough and body aches and fever. Coagulation became progressively worse and she presented with increased shortness of breath and she was found to be hypoxic at 86% on room air oxygen. She had an elevated d-dimer. CT angiogram showed bilateral pulmonary embolism consistent with COVID-19 related pneumonia. No RV strain pattern based on the CT angiogram. The patient was positive for COVID-19 by PCR. Her d-dimer was at 1.02. Platelet count was 136. Normal renal function. The patient was started on IV heparin. The patient was started on Decadron and the patient was transferred to [facility] for further care. CT angiogram showed bilateral groundglass densities consistent with COVID-19 related pneumonia. The patient had parenchymal densities in the posterior aspect of the lower lobes consistent with pneumonia. There are also scattered bilateral groundglass pulmonary abnormalities. Mediastinum was free of any disease. Pulmonary artery showed filling defects in the liver small but multiple small filling defects in the proximal pulmonary artery bilaterally, highly suspicious for pulmonary embolism. Currently she is on IV heparin. She is on 4 L of oxygen by nasal cannula and her pulse ox is around 96%. This morning, the patient has a white cell count of 5.1. Platelet count is at 1:30. PTT is a 59 which is therapeutic. LDH and CRP has not been done. She is on Decadron 6 mg by mouth daily. Multivitamins regarding COVID-19 infection has been also ordered. On 12/28/2020 patient seen in follow-up on selective care unit, she is resting comfortably in bed, she is currently on 2 L of oxygen her pulse ox is 92%, she is breathing comfortably, does not appear to be in any acute distress, she is awake and alert, oriented 3, she is afebrile. No complaints of chest discomfort, no hemoptysis. She is on day 2 of Remdesivir, she is on oral dexamethasone 6 mg daily. She remains on heparin infusion for a diagnosis of acute pulmonary embolism. Lower extremity Dopplers were completed and are negative for DVT. Echocardiogram is pending. On 12/29/2000 patient seen in follow-up on selective care unit, she 5 L of oxygen pulse ox is 94-96%, no fevers overnight, blood pressure stable,no new chest x-ray, patient has been admitted with COVID-19 pneumonia, and she is on day 3 of Remdesivir. She remains on oral Decadron 6 mg daily. Patient was also diagnosed with acute pulmonary embolism, lower extremity Dopplers were negative for DVT, echocardiogram showed moderate concentric LVH, and a low normal EF of 50-55%, right ventricle was mildly enlarged, and there was trace mitral regurgitation, right ventricular systolic pressure was less than 35 mmHg. she remains on heparin infusion. No acute events overnight. On 12/30/2000 patient seen in follow-up on selective care unit, she is awake and alert, in no acute distress, she is currently on 4 L of oxygen pulse ox is 98%. He is in no acute distress, vital signs have been stable. Echocardiogram results have been reviewed, lower extremity Dopplers were negative for DVT, no evidence of significant right heart strain on the echocardiogram. No evidence of pulmonary hypertension. Hemodynamically she has remained stable, no chest discomfort. We'll switch the patient over to Eliquis yesterday. Reports no acute events overnight, she remains on multivitamins for COVID-19, and oral dexamethasone. Her labs have been reviewed, white blood cell count is 5.9, hem oglobin is 15.4, electrolytes and renal profile are unremarkable, LDH is 569, CRP is 1.2. Objective - Vital Signs Vital signs: Vital Signs Temp 98.9 F 12/30/20 08:26 Pulse 72 12/30/20 12:05 Resp 16 12/30/20 12:05 BP 120/73 12/30/20 12:05 Pulse Ox 98 12/30/20 12:05 Intake & Output 12/29/20 12/30/20 12/30/20 18:59 06:59 18:59 Intake Total 2105.888 240 Output Total 800 Balance 1305.888 240 Weight 69.5 kg Intake: Intake, IV Titration 905.888 Amount Heparin Sod,Pork in 0.45% 5.888 NaCl 25,000 unit In 0.45 % NaCl 1 250ml.bag @ 18 UNITS/KG/HR 13.553 mls/hr IV .[id number] [facility] Rx#: [id number] Sodium Chloride 0.9% 1, 900 000 ml @ 75 mls/hr IV . [id number] [facility] Rx#:[id number] Oral 1200 240 Output: Urine 800 Other: Voiding Method Bedside Commode Bedside Commode Bedside Commode # Voids 3 4 1 # Bowel Movements 1 - Exam GENERAL EXAM: Alert, pleasant, 65-year-old white female, On 3 liters of oxygen the pulse ox 98% comfortable in no apparent distress. HEAD: Normocephalic/atraumatic. EYES: Normal reaction of pupils, equal size. Conjunctiva pink, sclera white. NOSE: Clear with pink turbinates. THROAT: No erythema or exudates. NECK: No masses, no JVD, no thyroid enlargement, no adenopathy. CHEST: No chest wall deformity. Symmetrical expansion. LUNGS: Equal air entry with no crackles, wheeze, rhonchi or dullness. CVS: Regular rate and rhythm, normal S1 and S2, no gallops, no murmurs, no rubs ABDOMEN: Soft, nontender. No hepatosplenomegaly, normal bowel sounds, no guarding or rigidity. EXTREMITIES: No clubbing, no edema, no cyanosis, 2+ pulses and upper and lower extremities. MUSCULOSKELETAL: Muscle strength and tone normal. SPINE: No scoliosis or deformity SKIN: No rashes CENTRAL NERVOUS SYSTEM: Alert and oriented -3. No focal deficits, tone is normal in all 4 extremities. PSYCHIATRIC: Alert and oriented -3. Appropriate affect. Intact judgment and insight. - Labs CBC & Chem 7: 12/30/20 07:09 12/30/20 07:09 Labs: Abnormal Lab Results - Last 24 Hours (Table) 12/29/20 12/30/20 12/30/20 Range/Units 06:29 07:09 07:09 Hct 46.3 H (34.0-46.0) % POC Glucose (mg/dL) (75-99) mg/dL Ferritin 420.7 H (10.0-291.0) ng/mL C-Reactive Protein 1.2 H (<1.0) mg/dL Total Protein 5.5 L (6.3-8.2) g/dL Albumin 2.9 L (3.5-5.0) g/dL 12/30/20 Range/Units 11:54 Hct (34.0-46.0) % POC Glucose (mg/dL) 125 H (75-99) mg/dL Ferritin (10.0-291.0) ng/mL C-Reactive Protein (<1.0) mg/dL Total Protein (6.3-8.2) g/dL Albumin (3.5-5.0) g/dL Assessment and Plan Plan: Assessment: #1. Acute COVID-19 related pneumonia, with bilateral groundglass changes consistent with COVID-19 pneumonia. Patient is within the window for Remdesivir, and was started on Remdesivir on 12/27/2020. She is also on Decadron. Patient was not vaccinated for COVID 19. Has not received monoclonal antibodies #2. Acute bilateral pulmonary embolism based on the CT angiogram contributing to the shortness of breath. This could be related to COVID-19 infectious hypercoagulability. Lower extremity Dopplers were negative for DVT, remains on heparin infusion. will be transitioned to oral anticoagulation #3. Acute hypoxic respiratory failure related to the above, currently on 5 L of oxygen above 96% #4. Mild thrombocytopenia, improving Plan: Patient remains stable Wean FiO2 as tolerated Encourage deep breathing and coughing Inflammatory markers remain low Continue oral anticoagulation, continue Decadron Patient only received one-time dose of Remdesivir, at this time she is probably out of the window, and there is no significant progression and hypoxia or dyspnea If remains stable on supplemental oxygen less than 5 L We may consider possible discharge home We'll follow I performed a history & physical examination of the patient and discussed their management with my nurse practitioner, Haleigh Knott. I reviewed the nurse practitioner's note and agree with the documented findings and plan of care. Lung sounds are positive for clear breath sounds throughout the lung fuentes. The findings and the impression was discussed with the patient. I attest to the documentation by the nurse practitioner. Time with Patient: Less than 30
--- NOTE | 2020-12-30 13:48 | P.PN ---
Subjective Progress Note Date: 12/30/20 (delayed charting seen at 1130) Principal diagnosis: shortness of breath Patient is a 65-year-old female with a history of vitamin D deficiency who was initially seen at [facility] secondary to shortness of breath and cough. She had a known COVID-19 exposer one week prior and had developed progressively worsening shortness of breath. On arrival there she was hypoxic at 86% on room air and had an elevated d-dimer. CTA showed bilateral pulmonary embolism and changes consistent with COVID-19 related pneumonia. There was no indication of RV strain on the CT angiogram. COVID-19 PCR was positive. She was subsequently started on IV heparin, and Decadron. She was transferred for further care. Pulmonary was consulted. She was started on ROM severe. She underwent an echocardiogram which showed concentric LVH and a low normal ejection fraction of 50-55% with moderate enlargement of the right ventricle. Her 70 Dopplers were negative for DVT. She had initially been doing well but required going to 5 L nasal cannula on 12/28. She was weaned to 5L NC on 12/30. Patient seen and examined at bedside. She states her breathing is good scared to go home on Oxygen. No chest pain, not lightheaded, not dizzy. General: Ill appearing, no distress, appears at stated age Derm: warm, dry Head: atraumatic, normocephalic, symmetric Eyes: EOMI, no lid lag, anicteric sclera Mouth: no lip lesion, mucus membranes moist Cardiovascular: S1S2 reg, no murmur, positive posterior tibial pulse bilateral, Lungs: Course sounds bilateral, no rhonchi, no rales , no accessory muscle use Abdominal: soft, nontender to palpation, no guarding, no appreciable organo megaly Ext: no gross muscle atrophy, no edema, no contractures Neuro: CN II-XI grossly intact, no focal neuro deficits Psych: Alert, oriented, appropriate affect COVID-19 pneumonia Acute bilateral pulmonary embolism Acute hypoxic respiratory failure -Decadron day #5 -Continue vitamin C, vitamin D, zinc, and melatonin. -Continue IV fluids -Patient has been transitioned to Eliquis -Echocardiogram without signs of RV strain -Lower extremity venous Doppler negative -Follow code with labs and chest x-ray -Pulmonary recommendations appreciated - unvaccinated Prerenal azotemia, resolved. DVT prophylaxis: eliquis Discussed with: patient,in 1-[address]: home A total of 35 minutes was spent on the care of this complex patient more than 50% of the time was spent in counseling and care coordination. Objective - Vital Signs Vital signs: Vital Signs Temp 98.9 F 12/30/20 08:26 Pulse 72 12/30/20 12:05 Resp 16 12/30/20 12:05 BP 120/73 12/30/20 12:05 Pulse Ox 98 12/30/20 12:05 Intake & Output 12/29/20 12/30/20 12/30/20 18:59 06:59 18:59 Intake Total 2105.888 240 Output Total 800 Balance 1305.888 240 Weight 69.5 kg Intake: Intake, IV Titration 905.888 Amount Heparin Sod,Pork in 0.45% 5.888 NaCl 25,000 unit In 0.45 % NaCl 1 250ml.bag @ 18 UNITS/KG/HR 13.553 mls/hr IV .[id number] [facility] Rx#: [id number] Sodium Chloride 0.9% 1, 900 000 ml @ 75 mls/hr IV . [id number] [facility] Rx#:[id number] Oral 1200 240 Output: Urine 800 Other: Voiding Method Bedside Commode Bedside Commode Bedside Commode # Voids 3 4 1 # Bowel Movements 1 - Labs CBC & Chem 7: 12/30/20 07:09 12/30/20 07:09 Labs: Abnormal Lab Results - Last 24 Hours (Table) 12/29/20 12/30/20 12/30/20 Range/Units 06:29 07:09 07:09 Hct 46.3 H (34.0-46.0) % POC Glucose (mg/dL) (75-99) mg/dL Ferritin 420.7 H (10.0-291.0) ng/mL C-Reactive Protein 1.2 H (<1.0) mg/dL Total Protein 5.5 L (6.3-8.2) g/dL Albumin 2.9 L (3.5-5.0) g/dL 12/30/20 Range/Units 11:54 Hct (34.0-46.0) % POC Glucose (mg/dL) 125 H (75-99) mg/dL Ferritin (10.0-291.0) ng/mL C-Reactive Protein (<1.0) mg/dL Total Protein (6.3-8.2) g/dL Albumin (3.5-5.0) g/dL
[2020-12-30] MEDS: MELATONIN 5 MG TABLET PO SCH (21:21)
[2020-12-31 00:52] LABS: Ferritin 347.3 ng/mL (10.0-291.0)
[2020-12-31] MEDS: SODIUM CHLORIDE 0.9% 1,000 ML IV SCH (05:25)
[2020-12-31] MEDS: ALBUTEROL HFA INHALER INHALATION SCH ×2 (07:36→12:26)
[2020-12-31] MEDS: ASCORBIC ACID 500 MG TAB PO SCH (09:10)
[2020-12-31] MEDS: CHOLECALCIFEROL 25 MCG (1000 IU) TABLET PO SCH (09:10)
[2020-12-31] MEDS: ZINC SULFATE 220 MG CAP PO SCH (09:11)
[2020-12-31] MEDS: APIXABAN 5 MG TAB PO SCH (09:11)
[2020-12-31] MEDS: dexAMETHasone 2 MG TAB PO SCH (09:11)
--- NOTE | 2020-12-31 09:44 | XR ---
EXAMINATION TYPE: XR chest 1V portable DATE OF EXAM: 12/31/2020 COMPARISON: NONE HISTORY: Covid 19 pneumonia TECHNIQUE: Single frontal view of the chest is obtained. FINDINGS: Patchy densities present within the lungs. Interstitium is prominent. Patient is rotated. There is no evident pneumothorax or pleural effusion. Cardiac mediastinal silhouette is within normal limits. There are overlying artifacts. IMPRESSION: Findings consistent with patient's history of Covid pneumonia.
--- NOTE | 2020-12-31 11:08 | P.PN ---
Subjective Progress Note Date: 12/31/20 Principal diagnosis: Acute COVID-19 pneumonia, acute bilateral pulmonary embolism 65-year-old female patient, transferred from [facility] because of shortness of breath, cough with a related pneumonia and pulmonary embolism. The patient was exposed to COVID-19 in approximately a week ago she started developing cough and body aches and fever. Coagulation became progressively worse and she presented with increased shortness of breath and she was found to be hypoxic at 86% on room air oxygen. She had an elevated d-dimer. CT angiogram showed bilateral pulmonary embolism consistent with COVID-19 related pneumonia. No RV strain pattern based on the CT angiogram. The patient was positive for COVID-19 by PCR. Her d-dimer was at 1.02. Platelet count was 136. Normal renal function. The patient was started on IV heparin. The patient was started on Decadron and the patient was transferred to [facility] for further care. CT angiogram showed bilateral groundglass densities consistent with COVID-19 related pneumonia. The patient had parenchymal densities in the posterior aspect of the lower lobes consistent with pneumonia. There are also scattered bilateral groundglass pulmonary abnormalities. Mediastinum was free of any disease. Pulmonary artery showed filling defects in the liver small but multiple small filling defects in the proximal pulmonary artery bilaterally, highly suspicious for pulmonary embolism. Currently she is on IV heparin. She is on 4 L of oxygen by nasal cannula and her pulse ox is around 96%. This morning, the patient has a white cell count of 5.1. Platelet count is at 1:30. PTT is a 59 which is therapeutic. LDH and CRP has not been done. She is on Decadron 6 mg by mouth daily. Multivitamins regarding COVID-19 infection has been also ordered. On 12/28/2020 patient seen in follow-up on selective care unit, she is resting comfortably in bed, she is currently on 2 L of oxygen her pulse ox is 92%, she is breathing comfortably, does not appear to be in any acute distress, she is awake and alert, oriented 3, she is afebrile. No complaints of chest discomfort, no hemoptysis. She is on day 2 of Remdesivir, she is on oral dexamethasone 6 mg daily. She remains on heparin infusion for a diagnosis of acute pulmonary embolism. Lower extremity Dopplers were completed and are negative for DVT. Echocardiogram is pending. On 12/29/2000 patient seen in follow-up on selective care unit, she 5 L of oxygen pulse ox is 94-96%, no fevers overnight, blood pressure stable,no new chest x-ray, patient has been admitted with COVID-19 pneumonia, and she is on day 3 of Remdesivir. She remains on oral Decadron 6 mg daily. Patient was also diagnosed with acute pulmonary embolism, lower extremity Dopplers were negative for DVT, echocardiogram showed moderate concentric LVH, and a low normal EF of 50-55%, right ventricle was mildly enlarged, and there was trace mitral regurgitation, right ventricular systolic pressure was less than 35 mmHg. she remains on heparin infusion. No acute events overnight. On 12/30/2020 patient seen in follow-up on selective care unit, she is awake and alert, in no acute distress, she is currently on 4 L of oxygen pulse ox is 98%. He is in no acute distress, vital signs have been stable. Echocardiogram results have been reviewed, lower extremity Dopplers were negative for DVT, no evidence of significant right heart strain on the echocardiogram. No evidence of pulmonary hypertension. Hemodynamically she has remained stable, no chest discomfort. We'll switch the patient over to Eliquis yesterday. Reports no acute events overnight, she remains on multivitamins for COVID-19, and oral dexamethasone. Her labs have been reviewed, white blood cell count is 5.9, hem oglobin is 15.4, electrolytes and renal profile are unremarkable, LDH is 569, CRP is 1.2. On 12/31/2020 patient seen in follow-up on selective care unit. She is awake, in no acute distress, reading comfortably, she is currently on 2 L of oxygen pulse ox of 95-97%, afebrile, no acute issues overnight, vital signs have been stable. Chest x-ray today shows patchy densities within the lungs, prominent interstitium, no evidence of pneumothorax or pleural effusion. Yesterday we switch the patient to oral Eliquis, she continues on Decadron 6 mg daily, she is on IV fluids with point tenderness on at 75 ML per hour, she continues on COVID 19 vitamins. Objective - Vital Signs Vital signs: Vital Signs Temp 97.8 F 12/31/20 08:00 Pulse 88 12/31/20 08:00 Resp 16 12/31/20 08:00 BP 126/68 12/31/20 08:00 Pulse Ox 95 12/31/20 08:00 Intake & Output 12/30/20 12/31/20 12/31/20 18:59 06:59 18:59 Intake Total 240 240 Balance 240 240 Weight 69 kg Intake: Oral 240 240 Other: Voiding Method Bedside Commode Bedside Commode # Voids 1 3 - Exam GENERAL EXAM: Alert, pleasant, 65-year-old white female, On 2 liters of oxygen the pulse ox 98% comfortable in no apparent distress. HEAD: Normocephalic/atraumatic. EYES: Normal reaction of pupils, equal size. Conjunctiva pink, sclera white. NOSE: Clear with pink turbinates. THROAT: No erythema or exudates. NECK: No masses, no JVD, no thyroid enlargement, no adenopathy. CHEST: No chest wall deformity. Symmetrical expansion. LUNGS: Equal air entry with no crackles, wheeze, rhonchi or dullness. CVS: Regular rate and rhythm, normal S1 and S2, no gallops, no murmurs, no rubs ABDOMEN: Soft, nontender. No hepatosplenomegaly, normal bowel sounds, no guarding or rigidity. EXTREMITIES: No clubbing, no edema, no cyanosis, 2+ pulses and upper and lower extremities. MUSCULOSKELETAL: Muscle strength and tone normal. SPINE: No scoliosis or deformity SKIN: No rashes CENTRAL NERVOUS SYSTEM: Alert and oriented -3. No focal deficits, tone is normal in all 4 extremities. PSYCHIATRIC: Alert and oriented -3. Appropriate affect. Intact judgment and insight. - Labs CBC & Chem 7: 12/30/20 07:09 12/30/20 07:09 Labs: Abnormal Lab Results - Last 24 Hours (Table) 12/30/20 12/30/20 Range/Units 07:09 11:54 POC Glucose (mg/dL) 125 H (75-99) mg/dL Ferritin 347.3 H (10.0-291.0) ng/mL Assessment and Plan Plan: Assessment: #1. Acute COVID-19 related pneumonia, with bilateral groundglass changes consistent with COVID-19 pneumonia. Patient is within the window for Remdesivir, and was started on Remdesivir on 12/27/2020. She is also on Decadron. Patient was not vaccinated for COVID 19. Has not received monoclonal antibodies #2. Acute bilateral pulmonary embolism based on the CT angiogram contributing to the shortness of breath. This could be related to COVID-19 infectious hypercoagulability. Lower extremity Dopplers were negative for DVT, remains on heparin infusion. will be transitioned to oral anticoagulation #3. Acute hypoxic respiratory failure related to the above, currently on 5 L of oxygen above 96% #4. Mild thrombocytopenia, improving Plan: Continue weaning FiO2 Trial the patient on room air Today's chest x-ray has been reviewed showing minimal patchy infiltrates No worsening dyspnea or hypoxia Patient was started on oral anticoagulation Increase activity as tolerated She could be considered for discharge home if cleared by medicine She will need to complete a total of 10 day course of Decadron 6 mg daily And she will continue on Eliquis Outpatient follow-up with Dr. Bailon in the office in 2-4 weeks I performed a history & physical examination of the patient and discussed their management with my nurse practitioner, Haleigh Knott. I reviewed the nurse practitioner's note and agree with the documented findings and plan of care. Lung sounds are positive for clear breath sounds throughout the lung fuentes. The findings and the impression was discussed with the patient. I attest to the documentation by the nurse practitioner. Time with Patient: Less than 30
[2020-12-31 12:36] VITALS: BP 118/76; PULSE 84; TEMP 98
[2020-12-31 13:39] VITALS: BMI 23.8
--- NOTE | 2020-12-31 18:43 | P.DS ---
Providers Date of admission: 12/26/20 20:52 Expected date of discharge: 12/31/20 Attending physician: Bailey Eldridge MD Consults: 12/26/20 20:55 Consult Physician Routine Consulting Provider: Lorena Bailon Consult Reason/Comments: Pulmonary embolism, COVID-19 pneumonia Do you want consulting provider notified?: Yes Primary care physician: Stated None Hospital Course: Discharge Diagnosis: COVID-19 pneumonia Acute bilateral pulmonary embolism Acute hypoxic respiratory failure Prerenal azotemia, resolved. Hospital Course: Patient is a 65-year-old female with a history of vitamin D deficiency who was initially seen at [facility] secondary to shortness of breath and cough. She had a known COVID-19 exposer one week prior and had developed progressively worsening shortness of breath. On arrival there she was hypoxic at 86% on room air and had an elevated d-dimer. CTA showed bilateral pulmonary embolism and changes consistent with COVID-19 related pneumonia. There was no indication of RV strain on the CT angiogram. COVID-19 PCR was positive. She was subsequently started on IV heparin, and Decadron. She was transferred for further care. Pulmonary was consulted. She was started on ROM severe. She underwent an echocardiogram which showed concentric LVH and a low normal ejection fraction of 50-55% with moderate enlargement of the right ventricle. Her 70 Dopplers were negative for DVT. She had initially been doing well but required going to 5 L nasal cannula on 12/28. She was weaned to 5L NC on 12/30. By 12/31 she was down to 2L NS and was determined stable for discharge. Follow-up: Dr. Canales (PCP) and Dr. Stovall (Pulm) in [place]. Dexamethasone for 4 more days and Eliquis twcie daily. Patient seen and examined at bedside. No chest pain, No shortness of breath, no nuasea, no vomiting. Still weak. Okay with going home with had a long discussion she will be staying with her daughter Vital signs reviewed and stable. General: non toxic, no distress, appears at stated age Derm: warm, dry Head: atraumatic, normocephalic, symmetric Eyes: EOMI, no lid lag, anicteric sclera Mouth: no lip lesion, mucus membranes moist Cardiovascular: S1S2 reg, no murmur, positive posterior tibial pulse bilateral, Lungs: CTA bilateral, no rhonchi, no rales , no accessory muscle use Abdominal: soft, nontender to palpation, no guarding, no appreciable organomegaly Ext: no gross muscle atrophy, no edema, no contractures Neuro: CN II-XI grossly intact, no focal neuro deficits Psych: Alert, oriented, appropriate affect A total of 39 minutes of time were spent preparing this complex discharge summary . Patient Condition at Discharge: Fair Plan - Discharge Summary Discharge Rx Participant: Yes New Discharge Prescriptions: New Apixaban [Eliquis Starter Pack (for VTE)] 5 - 10 mg PO DIRECTED 30 Days #1 each dexAMETHasone ORAL [Hexadrol] 6 mg PO DAILY #12 tab Zinc Sulfate [Orazinc] 220 mg PO DAILY cap Continue Cholecalciferol [Vitamin D3 (25 Mcg = 1000 Iu)] 50 mcg PO DAILY Discontinued Aspirin (Unknown Dose) 1 tab PO DAILY Discharge Medication List Cholecalciferol [Vitamin D3 (25 Mcg = 1000 Iu)] 50 mcg PO DAILY 12/26/20 [History] Apixaban [Eliquis Starter Pack (for VTE)] 5 - 10 mg PO DIRECTED 30 Days #1 each 12/31/20 [Rx] Zinc Sulfate [Orazinc] 220 mg PO DAILY cap 12/31/20 [Rx] dexAMETHasone ORAL [Hexadrol] 6 mg PO DAILY #12 tab 12/31/20 [Rx] Follow up Appointment(s)/Referral(s): [facility] [NON-STAFF] - As Needed (Supplier of Home Oxygen) None,Stated [Primary Care Provider] - 1-2 days Activity/Diet/Wound Care/Special Instructions: Activity: as tolerated Diet: heart healthy Special Instructions: Peace Canales DO (Primary Care Doctor) [address] [place] [address] [address]. [address] [email or web address] Nilson Banda DO (Lung Doctor) [facility] [address] [place] [address], [address] [place] [address] Discharge Disposition: HOME SELF-CARE
== END 2020-12-31 17:58 | disposition home or self-care (01) | DRG 177 ==
LOC: EC 19:34 → 3SCARD 20:52
PROVIDERS: ADMIT Internal Medicine; ATTEND Internal Medicine
PROC: XW033E5 Introduction of Remdesivir Anti-infective into Peripheral Vein, Percutaneous Approach, New Technology Group 5 (ICD-10-PCS; principal; 2020-12-27)
DX: U07.1 COVID-19 (principal); I26.99 Other pulmonary embolism without acute cor pulmonale; J12.82 Pneumonia due to coronavirus disease 2019; J96.01 Acute respiratory failure with hypoxia; Z79.82 Long term (current) use of aspirin; D69.6 Thrombocytopenia, unspecified; R79.89 Other specified abnormal findings of blood chemistry
CPT/HCPCS: 71045; 80053; 82728; 83615; 84132; 85027; 85610; 85730; 86140; 93005; 93306; 93970; 94640; 94760; 99285